=== PATIENT | male | born 1945 | race Caucasian/White ===

== ENCOUNTER 2020-06-22 18:17 | Emergency (ER) | payer MEDICARE ==
[~2020-06-22 18:17] MED LIST: Iopamidol-370 76% 500 ML 1 ML ONE
[2020-06-22 18:37] LABS: Bacteria/HPF None Seen HPF (None Seen); Bilirubin Negative (Negative); Blood, Urine Negative (Negative); Clarity Clear (Clear); Glucose, Urine (Dipstick) Normal (Negative); Ketone, Urine Negative (Negative); Leukocyte 25 Leu/uL (Negative); Nitrite Negative (Negative); Protein, Urine (Dipstick) Negative (Neg-Trace); RBC/HPF 0-3 HPF (0-3); Specific Gravity, Urine 1.013 (1.002-1.036); Squamous Epithelial None Seen HPF (0-3); Urobilinogen Normal mg/dL (Less than 2); WBC/HPF 0-3 HPF (0-3)
[2020-06-22] MEDS ORDERED: Ketorolac Tromethamine 30 MG/ML VIAL ONE (21:43)
[2020-06-22] MEDS ORDERED: Ondansetron PF 4 MG/2 ML Vial ONE (21:43)
[2020-06-22 22:01] LABS: ALT (SGPT) 13 U/L (8-55); AST (SGOT) 28 U/L (5-34); Alkaline Phosphatase 75 U/L (40-110); Anion Gap 15 mmol/L (10-20); BUN (Urea Nitrogen) 10 mg/dL (8.4-25.7); Bilirubin, Total 0.8 mg/dL (0.2-1.2); Calc. Creatinine Clearance 0 mL/min (70-130); Calcium 9.3 mg/dL (7.8-10.44); Carbon Dioxide 25 mmol/L (23-31); Chloride 104 mmol/L (98-107); Estimated GFR-MDRD 72; Globulin 3.1 g/dL (2.4-3.5); Glucose 138 mg/dL (83-110); Lipase 62 U/L (8-78); Potassium 3.8 mmol/L (3.5-5.1); Protein, Total 7.1 g/dL (5.8-8.1); Sodium 140 mmol/L (136-145)
[2020-06-22 22:13] LABS: Hemoglobin 13.5 g/dL (14.0-18.0); Mean Corpuscular HGB CONC 33.3 g/dL (32.0-36.0); Mean Corpuscular Hemoglobin 30.9 pg (27.0-31.0); Mean Platelet Volume 8.6 fL (7.4-10.4); Platelet Count 265 thou/uL (130-400); RBC Distribution Width 11.8 % (11.5-14.5); Red Blood Cell (RBC) Count 4.36 mill/uL (4.70-6.10); White Blood Cell (WBC) Count 6.8 thou/uL (4.8-10.8)
--- NOTE | 2020-06-22 22:38 | CT ---
CT of the abdomen and pelvis: 06/22/2020 COMPARISON: None HISTORY: Flank pain TECHNIQUE: Axial CT imaging at 5 mm intervals from the lung bases through the pubic symphysis with IV contrast. Coronal and sagittal reformatted imaging obtained. FINDINGS: There is a subpleural cyst measuring 3.5 cm within the left lower lobe inferiorly. Imaged l joslyn bases are grossly unremarkable otherwise. No free intraperitoneal air or fluid is seen. The liver, gallbladder, spleen, and adrenal glands appear grossly unremarkable. There is mild diffuse prominence of the pancreatic duct, etiology/significance uncertain. Multiple hypodense renal lesions are noted bilaterally, left larger and more numerous than right, sug gesting multiple cysts, measuring up to 6 mm on the left. The prostate gland contains dystrophic calcification. No evidence for bowel inflammatory change or obstruction. There is scattered atherosclerotic calcification of the abdominal aorta and its branches. No pelvic, mesenteric, or retroperitoneal lymphadenopathy. There is multilevel degenerative change within the lumbar spine with multilevel disc space narrowing, facet hypertrophy, and vacuum disc formation. IMPRESSION: Pancreatic duct is diffusely mildly prominent, significance uncertain. Question a prior h istory of pancreatitis. No convincing evidence for acute pancreatitis. Correlation with laboratory assessment advised. Follow-up MRCP may be beneficial as well. Numerous incidental findings. No evidence for small bowel obstruction or free intraperitoneal air.
[2020-06-22 22:39] LABS: Band 1 % (5-11); Eosinophils 4 % (0-10); Lymphocytes 38 % (21-51); MDiff Complete? YES; Monocytes 8 % (0-10); Neutrophil 49 % (42-75)
[2020-06-22] MEDS ORDERED: Morphine 4 MG/ML VIAL ONE (23:41)
--- NOTE | 2020-06-23 17:16 | EKG ---
Test Reason : Blood Pressure : / mmHG Vent. Rate : 072 BPM Atrial Rate : 072 BPM P-R Int : 146 ms QRS Dur : 068 ms QT Int : 376 ms P-R-T Axes : 032 055 067 degrees QTc Int : 411 ms Normal sinus rhythm Low voltage QRS Borderline ECG Confirmed by WHITNEY PIZANO DO ([id number]), features editor CHELO KITCHEN ([id number]) on 06/23/2020 5:15:52 PM Referred By: Confirmed By:WHITNEY PIZANO DO
== END 2020-06-22 23:54 | disposition home or self-care (01) ==
LOC: ERS 18:17
DX: R10.9 Unspecified abdominal pain (principal); R11.0 Nausea; Z87.442 Personal history of urinary calculi; Z85.46 Personal history of malignant neoplasm of prostate
CPT/HCPCS: 36415; 74177; 80053; 81003; 81015; 83690; 84484; 85025; 93005; 96374; 96375; J1885; J2270; J2405; Q9967

== ENCOUNTER 2020-07-18 09:04 | Outpatient (CLI) | payer MEDICARE ==
--- NOTE | 2020-07-18 11:13 | MRI ---
EXAM: MRI of the abdomen without and with contrast COMPARISON: CT abdomen/pelvis 05/22/2020 HISTORY: Abdominal pain. History of prostate cancer. TECHNIQUE: Multiplanar multi sequence MR images were taken of the abdomen without and with IV contras t. An MRCP was performed. FINDINGS: Liver: No focal liver lesions or intrahepatic ductal dilatation. Normal signal without dropout on out of phase images. No abnormal enhancement. Gallbladder: No filling defects or gallbladder wall thickening. Common bile duct: Normal caliber without filling defects Adrenal glands: Unremarkable. Kidneys: No hydronephrosis. Multiple bilateral renal cysts measuring up to 6.2 cm in size. No abnorma l areas of enhancement. Spleen: Unremarkable. Pancreas: There is a highly abnormal mildly dilated pancreatic duct. There are numerous well-circumsc ribed nonenhancing cystic lesions emanating from the pancreatic duct. Some of these lesions may be present within the pancreatic duct. The largest measures 1.5 cm in size. These are seen throughout th e entire pancreas in the body, neck, and tail of the pancreas. No filling defect is seen within the pancreatic duct and no definite enhancing pancreatic mass is seen. Retroperitoneum: No enlarged lymph nodes Bones: Heterogeneous marrow signal without suspicious enhancing lesions. IMPRESSION: 1. 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 These likely include both main duct and branch duct IPMNs. 2. Bilateral renal cysts This exam was reviewed with Dr. Vásquez who agrees the findings and impression.
== END 2020-07-18 09:05 | disposition home or self-care (01) ==
LOC: TBSIIMAG 09:04
PROVIDERS: ATTEND Internal Medicine Gastroenterology
DX: C61 Malignant neoplasm of prostate (principal); R93.89 Abnormal findings on diagnostic imaging of other specified body structures; R10.30 Lower abdominal pain, unspecified; N20.0 Calculus of kidney; N28.1 Cyst of kidney, acquired
CPT/HCPCS: 74183

== ENCOUNTER → 2023-03-04 | Day surgery (SDC) | payer MEDICARE ==
[~2023-03-04] MED LIST changes: -Iopamidol-370 76% 500 ML 1 ML ONE; +Lidocaine 1% PF 5 ML VIAL ONE; +Sodium Bicarbonate 2.5 MEQ/5 ML VIAL ONE
== END ==
LOC: ULT 12:58
PROVIDERS: ATTEND Student in an Organized Health Care Education/Training Program
DX: E04.1 Nontoxic single thyroid nodule (principal); D17.0 Benign lipomatous neoplasm of skin and subcutaneous tissue of head, face and neck; R49.8 Other voice and resonance disorders
CPT/HCPCS: 10005; 88173

== ENCOUNTER 2025-02-28 10:53 | Inpatient (IN) | payer MEDICARE ==
[2025-02-28] MEDS ORDERED: Iopamidol-370 76% 500 ML MDV (1 ML CHARGE) ONE (11:26)
[2025-02-28 11:45] LABS: #Basophils 0.06 10x3/uL (0.0-0.2); #Eosinophils 0.14 10x3/uL (0.0-0.7); #Monocytes 0.67 10x3/uL (0.11-0.59); #Neutrophils 6.90 10x3/uL (1.40-6.50); %Basophils 0.7 % (0.0-1.0); %Eosinophils 1.5 % (0.0-10.0); %Lymphocytes 14.2 % (21.0-51.0); %Monocytes 7.3 % (0.0-10.0); %Neutrophils 75.1 % (42.0-75.0); Hematocrit 38.2 % (42.0-52.0); Hemoglobin 12.4 g/dL (14.0-18.0); Mean Corpuscular Hemoglobin 30.4 pg (27.0-31.0); Mean Corpuscular Volume 93.6 fL (78.0-98.0); Platelet Count 223 10x3/uL (130-400); Red Blood Cell (RBC) Count 4.08 mill/uL (4.70-6.10); White Blood Cell (WBC) Count 9.18 10x3/uL (4.8-10.8)
[2025-02-28] MEDS ORDERED: Ondansetron PF 4 MG/2 ML Vial ONE (11:51)
[2025-02-28] MEDS ORDERED: Boostrix 0.5 ML (Tdap) VIAL (>/=7 yrs of age) ONE (11:51)
[2025-02-28 11:57] LABS: INR-International Normal Ratio 1.1; Prothrombin Time 14.3 sec (12.0-14.7)
[2025-02-28 11:58] LABS: PTT 31.9 sec (22.9-36.1)
[2025-02-28 12:03] LABS: ALT (SGPT) 16 U/L (Less than 45); AST (SGOT) 29 U/L (11-34); Albumin 3.7 g/dL (3.1-4.5); Alkaline Phosphatase 67 U/L (40-110); Anion Gap 11 mmol/L (10-20); BUN (Urea Nitrogen) 18 mg/dL (8.4-25.7); Bilirubin, Total 1.2 mg/dL (0.3-1.2); Calc. Creatinine Clearance 0 mL/min (70-130); Calcium 8.7 mg/dL (7.8-10.44); Carbon Dioxide 21 mmol/L (23-31); Chloride 110 mmol/L (98-107); Globulin 2.5 g/dL (2.4-3.5); Glucose 98 mg/dL (83-110); Potassium 4.0 mmol/L (3.5-5.1); Sodium 138 mmol/L (136-145)
[2025-02-28 12:07] LABS: Troponin I 0.024 ng/mL (< 0.028)
[2025-02-28] MEDS ORDERED: Lidocaine 1% (PF) 30 ML VIAL ONE (13:24)
[2025-02-28] MEDS ORDERED: Dextrose 50% Abboject 50 ML SYRINGE SLOW IVP PRN (13:55)
[2025-02-28] MEDS ORDERED: Acetaminophen 325 MG TAB PO PRN (13:55)
[2025-02-28] MEDS ORDERED: Glucagon 1 MG/ML KIT IM PRN (13:55)
[2025-02-28] MEDS ORDERED: Ondansetron PF 4 MG/2 ML Vial IVP PRN (13:55)
[2025-02-28 20:35] VITALS: BMI 34.8
[2025-03-01 05:46] LABS: #Basophils 0.04 10x3/uL (0.0-0.2); #Eosinophils 0.08 10x3/uL (0.0-0.7); #Monocytes 1.34 10x3/uL (0.11-0.59); #Neutrophils 6.69 10x3/uL (1.40-6.50); %Basophils 0.4 % (0.0-1.0); %Eosinophils 0.8 % (0.0-10.0); %Lymphocytes 16.5 % (21.0-51.0); %Monocytes 13.7 % (0.0-10.0); %Neutrophils 68.2 % (42.0-75.0); Hematocrit 38.5 % (42.0-52.0); Hemoglobin 12.6 g/dL (14.0-18.0); Mean Corpuscular Hemoglobin 31.1 pg (27.0-31.0); Mean Corpuscular Volume 95.1 fL (78.0-98.0); Platelet Count 201 10x3/uL (130-400); Red Blood Cell (RBC) Count 4.05 mill/uL (4.70-6.10); White Blood Cell (WBC) Count 9.81 10x3/uL (4.8-10.8)
[2025-03-01 07:06] LABS: Anion Gap 12 mmol/L (10-20); BUN (Urea Nitrogen) 17 mg/dL (8.4-25.7); Calc. Creatinine Clearance 86 mL/min (70-130); Calcium 9.0 mg/dL (7.8-10.44); Carbon Dioxide 23 mmol/L (23-31); Chloride 109 mmol/L (98-107); Glucose 102 mg/dL (83-110); Potassium 4.0 mmol/L (3.5-5.1); Sodium 140 mmol/L (136-145)
[2025-03-01] MEDS: Acetaminophen 325 MG TAB PO SCH (14:04)
[2025-03-01] MEDS: Methocarbamol 500 MG TAB PO SCH (16:39)
[2025-03-01] MEDS: Senokot S 8.6-50 MG TAB PO SCH (21:29)
[2025-03-02] MEDS: Ketorolac Tromethamine 30 MG (1 mL) VIAL IVP SCH (00:30)
[2025-03-02] MEDS: Transdermal Patch Removal TOP SCH (02:34)
[2025-03-02 05:56] LABS: #Basophils 0.04 10x3/uL (0.0-0.2); #Eosinophils 0.08 10x3/uL (0.0-0.7); #Monocytes 1.44 10x3/uL (0.11-0.59); #Neutrophils 9.54 10x3/uL (1.40-6.50); %Basophils 0.3 % (0.0-1.0); %Eosinophils 0.6 % (0.0-10.0); %Lymphocytes 12.1 % (21.0-51.0); %Monocytes 11.3 % (0.0-10.0); %Neutrophils 75.1 % (42.0-75.0); Hematocrit 38.4 % (42.0-52.0); Hemoglobin 12.3 g/dL (14.0-18.0); Mean Corpuscular Hemoglobin 29.9 pg (27.0-31.0); Mean Corpuscular Volume 93.4 fL (78.0-98.0); Platelet Count 187 10x3/uL (130-400); Red Blood Cell (RBC) Count 4.11 mill/uL (4.70-6.10); White Blood Cell (WBC) Count 12.71 10x3/uL (4.8-10.8)
[2025-03-02 06:12] LABS: Anion Gap 13 mmol/L (10-20); BUN (Urea Nitrogen) 17 mg/dL (8.4-25.7); Calc. Creatinine Clearance 90 mL/min (70-130); Calcium 8.2 mg/dL (7.8-10.44); Carbon Dioxide 21 mmol/L (23-31); Chloride 107 mmol/L (98-107); Glucose 116 mg/dL (83-110); Potassium 3.8 mmol/L (3.5-5.1); Sodium 137 mmol/L (136-145)
[2025-03-02] MEDS: Enoxaparin 30 MG (0.3 mL) SYRINGE SC SCH (09:26)
[2025-03-02 13:38] VITALS: BP 114/58; TEMP 97.8
== END 2025-03-02 17:26 | disposition home or self-care (01) | DRG 700 ==
LOC: ERS 10:53 → ERHOLD 14:02 → SURG B 20:16
PROVIDERS: ADMIT Surgery Trauma Surgery; ATTEND Surgery Trauma Surgery
DX: S37.06 Major laceration of kidney (principal); E04.2 Nontoxic multinodular goiter; M16.0 Bilateral primary osteoarthritis of hip; Z79.899 Other long term (current) drug therapy; M47.812 Spondylosis without myelopathy or radiculopathy, cervical region; V89.2XXA Person injured in unspecified motor-vehicle accident, traffic, initial encounter
CPT/HCPCS: 36415; 70450; 71045; 71260; 72125; 74177; 80048; 80053; 80307; 83880; 84484; 85025; 85610; 85730; 90471; 90715; 93005; 96374; 96375; G0390; J1650; J1885; J2270; J2405; J7030; Q9967

== ENCOUNTER 2025-04-06 13:08 | Outpatient (CLI) | payer MEDICARE ==
[2025-04-06 13:55] LABS: #Basophils 0.06 10x3/uL (0.0-0.2); #Eosinophils 0.26 10x3/uL (0.0-0.7); #Monocytes 0.62 10x3/uL (0.11-0.59); #Neutrophils 3.57 10x3/uL (1.40-6.50); %Basophils 0.9 % (0.0-1.0); %Eosinophils 4.0 % (0.0-10.0); %Lymphocytes 29.4 % (21.0-51.0); %Monocytes 9.7 % (0.0-10.0); %Neutrophils 55.7 % (42.0-75.0); Hematocrit 39.2 % (42.0-52.0); Hemoglobin 12.8 g/dL (14.0-18.0); Mean Corpuscular Hemoglobin 30.5 pg (27.0-31.0); Mean Corpuscular Volume 93.3 fL (78.0-98.0); Platelet Count 279 10x3/uL (130-400); Red Blood Cell (RBC) Count 4.20 mill/uL (4.70-6.10); White Blood Cell (WBC) Count 6.42 10x3/uL (4.8-10.8)
[2025-04-06 14:05] LABS: Bacteria/HPF None Seen HPF (None Seen); Glucose, Urine (Dipstick) Normal (Negative); Leukocyte 25 Leu/uL (Negative); Protein, Urine (Dipstick) Negative (Neg-Trace); Specific Gravity, Urine 1.009 (1.002-1.036); WBC/HPF 0-3 HPF (0-3)
[2025-04-06 14:12] LABS: Anion Gap 12 mmol/L (10-20); BUN (Urea Nitrogen) 15 mg/dL (8.4-25.7); Calc. Creatinine Clearance 0 mL/min (70-130); Calcium 9.5 mg/dL (7.8-10.44); Carbon Dioxide 26 mmol/L (23-31); Chloride 107 mmol/L (98-107); Glucose 109 mg/dL (83-110); Potassium 4.0 mmol/L (3.5-5.1); Sodium 141 mmol/L (136-145)
[2025-04-06 14:28] LABS: INR-International Normal Ratio 1.0; Prothrombin Time 13.4 sec (12.0-14.7)
[2025-04-06 14:29] LABS: PTT 33.3 sec (22.9-36.1)
== END 2025-04-06 13:09 | disposition home or self-care (01) ==
LOC: LABBT 13:08
PROVIDERS: ATTEND Urology
DX: Z01.818 Encounter for other preprocedural examination (principal); C67.3 Malignant neoplasm of anterior wall of bladder; N40.1 Benign prostatic hyperplasia with lower urinary tract symptoms; C61 Malignant neoplasm of prostate
CPT/HCPCS: 80048; 81001; 85025; 85610; 85730; 87086; 93005; 93010

== ENCOUNTER 2025-04-20 09:03 | Day surgery (SDC) | payer MEDICARE ==
[2025-04-06 13:18] VITALS: BMI 27.7
[2025-04-20] MEDS ORDERED: LevoFLOXacin D5W 500 mg (100 mL) BAG ONE (11:21)
[2025-04-20] MEDS ORDERED: Rocuronium Bromide 10 MG/ML (10ML VIAL) ONE (12:11)
[2025-04-20] MEDS ORDERED: Lidocaine 1% PF 5 ML VIAL ONE (12:11)
[2025-04-20] MEDS ORDERED: PROPOFOL 20 ML ONE (12:11)
[2025-04-20] MEDS ORDERED: fentaNYL PF 100 MCG/2 ML SYRINGE ONE (12:11)
[2025-04-20] MEDS ORDERED: Ondansetron PF 4 MG/2 ML Vial ONE (12:46)
[2025-04-20] MEDS ORDERED: SUGAMMADEX SODIUM 200 MG/2 ML VIAL ONE (12:47)
[2025-04-20] MEDS ORDERED: Glycopyrrolate 0.2 MG/ML 5 ML SYRINGE ONE (12:54)
[2025-04-20] MEDS ORDERED: PHENYLEPHRINE-NS 100 MCG/ML 10 ML SYRINGE ONE (12:54)
[2025-04-20] MEDS ORDERED: Oxybutynin 5 MG TAB ONE (14:25)
== END 2025-04-20 16:20 | disposition home or self-care (01) ==
LOC: SDC 09:03
PROVIDERS: ATTEND Urology
PROC: 0TBB8ZZ Excision of Bladder, Via Natural or Artificial Opening Endoscopic (ICD-10-PCS; principal; 2025-04-20)
DX: C67.3 Malignant neoplasm of anterior wall of bladder (principal); N40.1 Benign prostatic hyperplasia with lower urinary tract symptoms; C61 Malignant neoplasm of prostate
CPT/HCPCS: 52235; J1100; J1956; J2704; J9280; 88305

== ENCOUNTER 2025-06-08 09:24 | Day surgery (SDC) | payer MEDICARE ==
[2025-05-29 10:27] VITALS: BMI 27.3
[2025-06-08] MEDS ORDERED: Ondansetron PF 4 MG/2 ML Vial ONE (10:39)
[2025-06-08] MEDS ORDERED: Rocuronium Bromide 10 MG/ML (10ML VIAL) ONE (10:39)
[2025-06-08] MEDS ORDERED: fentaNYL PF 100 MCG/2 ML SYRINGE ONE (10:39)
[2025-06-08] MEDS ORDERED: Lidocaine 1% PF 5 ML VIAL ONE (10:39)
[2025-06-08] MEDS ORDERED: PHENYLEPHRINE-NS 100 MCG/ML 10 ML SYRINGE ONE (10:40)
[2025-06-08] MEDS ORDERED: Glycopyrrolate 0.2 MG/ML 5 ML SYRINGE ONE (10:40)
[2025-06-08] MEDS ORDERED: Lidocaine 2% 6 ML (Jelly) SYR ONE (10:40)
[2025-06-08] MEDS ORDERED: LevoFLOXacin D5W 500 mg (100 mL) BAG ONE (10:45)
[2025-06-08] MEDS ORDERED: PROPOFOL 200 MG/20 ML VIAL ONE (13:52)
[2025-06-08] MEDS ORDERED: SUGAMMADEX SODIUM 200 MG/2 ML VIAL ONE ×2 (14:11)
[2025-06-08] MEDS ORDERED: Oxybutynin 5 MG TAB ONE (15:11)
== END 2025-06-08 17:01 | disposition home or self-care (01) ==
LOC: SDC 09:24
PROVIDERS: ATTEND Urology
PROC: 0TBB8ZZ Excision of Bladder, Via Natural or Artificial Opening Endoscopic (ICD-10-PCS; principal; 2025-06-08)
DX: N30.90 Cystitis, unspecified without hematuria (principal); N32.89 Other specified disorders of bladder; N40.0 Benign prostatic hyperplasia without lower urinary tract symptoms
CPT/HCPCS: 52235; J1956; J2405; J2704; J3010; 88307

== ENCOUNTER 2025-06-26 13:10 | Outpatient (CLI) | payer MEDICARE | END 2025-06-26 13:11 | disposition home or self-care (01) | LOC: SCSRAD 13:10 | PROVIDERS: ATTEND Family Medicine | DX: R05.9 Cough, unspecified (principal) | CPT/HCPCS: 71046 ==